=== PATIENT | male | born 1995 | race African-American/Black ===

== ENCOUNTER 2020-11-13 00:11 | Emergency (ER) | payer SELFPAY ==
[~2020-11-13] VITALS: Ht 162.6 cm; Wt 78.9 kg
--- NOTE | 2020-11-13 00:14 | NUR ---
Pt bibself c/o rt finger pain and swelling. Pt aaox4 breathing evenly and unlabored. Pt had been seen by PCP earlier today. Pt has Rx for antibiotics from that visit. Pt attached to monitor and pox.
--- NOTE | 2020-11-13 00:30 | NUR ---
Patient discharged to home in stable condition. Written and verbal after care instructions given. Patient verbalizes understanding of instruction. Pt ambulatory with a steady gait
[2020-11-13 00:35] VITALS: BP 129/85
== END 2020-11-13 00:30 | disposition home or self-care (01) ==
LOC: ER 00:17
DX: L03.011 Cellulitis of right finger (principal)

== ENCOUNTER 2022-04-11 22:44 | Emergency (ER) | payer OTHER ==
[~2022-04-11] VITALS: Ht 160 cm; Wt 81.6 kg
[2022-04-11 23:05] VITALS: BP 135/70
[2022-04-12] MEDS ORDERED: IBUP-1955 PO (00:12)
[2022-04-12] MEDS ORDERED: IBUPROFEN 600 MG TABLET ONE (00:36)
--- NOTE | 2022-04-12 00:41 | NUR ---
Patient discharged to home in stable condition. Written and verbal after care instructions given. Patient verbalizes understanding of instruction.
[2022-04-12] MEDS ORDERED: IBUPROFEN 600 MG TABLET PO ONE (01:00)
== END 2022-04-12 00:41 | disposition home or self-care (01) ==
LOC: ER 22:45
DX: S00.03XA Contusion of scalp, initial encounter (principal); S76.912A Strain of unspecified muscles, fascia and tendons at thigh level, left thigh, initial encounter; S76.911A Strain of unspecified muscles, fascia and tendons at thigh level, right thigh, initial encounter; S46.912A Strain of unspecified muscle, fascia and tendon at shoulder and upper arm level, left arm, initial encounter; V89.2XXA Person injured in unspecified motor-vehicle accident, traffic, initial encounter; Y93.89 Activity, other specified; Y92.89 Other specified places as the place of occurrence of the external cause; Y99.8 Other external cause status
CPT/HCPCS: 70450-TC; 73030-TC